=== PATIENT | male | born 1965 | race Caucasian/White ===

== ENCOUNTER 2017-04-21 11:19 | Emergency (ER) | payer OTHER ==
[~2017-04-21] VITALS: Ht 177.8 cm; Wt 102.2 kg
[~2017-04-21 11:19] MED LIST: PRLSR20 PO; RANI300C PO; TERA1CAP PO
[2017-04-21 11:28] VITALS: TEMP 36.6; Ht 177.8 cm; Wt 102.2 kg
[2017-04-21] MEDS ORDERED: OMEP40CA41 PO (11:50)
[2017-04-21] MEDS ORDERED: TAMS0.4C38 PO (11:50)
[2017-04-21] MEDS ORDERED: DICY20TA35 PO (11:50)
[2017-04-21] MEDS ORDERED: FINA5TAB PO (11:50)
[2017-04-21] MEDS ORDERED: CRS/10 PO (11:50)
[2017-04-21] MEDS ORDERED: LORAZEPAM 1 MG TAB SL STA (12:15)
--- NOTE | 2017-04-21 12:24 | EMERGENCY ROOM VISIT NOTE ---
History Report prepared by Lida: Romario Tripp Under the Supervision of: Dr. Chadwick Mcallister M.D. First contact with patient: 12:08 Chief Complaint: CHEST PAIN Stated Complaint: CHEST PAIN Nursing Triage Summary: Prisoner from [place], presents via ALS for CP starting this am at 0730. Per EMS , pt was asked to get a random drug screen taken first thing this morning, pt became anxious, developed CP, EKG performed showed slight ST depression, given 4 baby ASA and 3 Nitro Sprays with no relief. Hx GERD, anxiety, hyperlipidemia, and is a smoker. Pt presents c/o left sided chest pressure, lightheaded/dizzy, and dyspnea at rest. Pt verbalizes "I think this is just anxiety, I get panic attacks and they are like this". History of Present Illness The patient is a 51 year old male who presents to the Emergency Room with complaints of constant left-sided chest pressure beginning this morning. The patient states that he was short of breath after the onset. He denies a history of heart problems, but he does have a history of panic attacks. The patient notes that it feels like he is having a panic attack. He states that all he needs to do is go back to his cell, and his symptoms will go away. The patient reports that he experienced dizziness after receiving nitroglycerin in the ambulance. He notes that he has been having pain in his right leg that radiates to his back, but this has been for the past few weeks. The patient denies lightheadedness. Source of History: patient Onset: this morning Position: chest Quality: pressure Timing: constant Associated Symptoms: + SOB, + back pain Note: Associated symptoms: dizziness and leg pain Denies: lightheadedness. Review of Systems All systems have been listed, reviewed, and are negative other than those previously mentioned. Please see Additional Medical History Sheet. Past Medical & Surgical Medical Problems: (1) Panic attack Family History Patient reports no known family medical history. Social History Smoking Status: Current Every Day Smoker Marital Status: Current/Historical Medications Scheduled Finasteride (Proscar), 5 MG PO DAILY Omeprazole (Prilosec), 40 MG PO DAILY Rosuvastatin Calcium (Crestor), 10 MG PO DAILY Tamsulosin Hcl (Flomax), 0.4 MG PO HS Scheduled PRN Dicyclomine Hcl (Bentyl), 20 MG PO BID PRN for . Allergies Coded Allergies: Iodine (Unverified Allergy, Unknown, UNKNOWN, 04/21/17) Shellfish (Unverified Allergy, Unknown, UNKNOWN, 04/21/17) Physical Exam Vital Signs Date Time Temp Pulse Resp B/P (MAP) Pulse Ox O2 Delivery O2 Flow Rate FiO2 04/21/17 12:27 109 18 148/92 96 Room Air 04/21/17 11:29 108 04/21/17 11:28 36.6 106 18 158/90 98 Room Air 04/21/17 11:28 98 Room Air Physical Exam GENERAL: Patient awake, alert, oriented x 3. Patient follows commands. Patient does not appear toxic. Patient is adequately hydrated and well- nourished. SKIN: No erythema, pallor, cyanosis or rash HEENT: Normal head, pupils equal, reactive to light and accommodation. Oral cavity and posterior pharynx appear normal. Neck: Without adenopathy, no neck vein distention. LUNGS: Clear to auscultation. No wheezes, no rales, no rhonchi. HEART: No murmurs. No gallops. No rubs ABDOMEN: No masses, no rebound, no hepatomegaly or splenomegaly. EXTREMITIES: No signs of trauma. No pedal or pretibial edema. No calf or thigh tenderness. NEUROLOGIC: Cranial nerves II-XII within normal limits. No gross motor sensory function deficits. Medical Decision & Procedures Medications Administered Medications (Trade) Dose Ordered Sig/Carmen Route Start Time Stop Time Status Last Admin Dose Admin Lorazepam (Ativan Tab) 1 mg NOW STAT SL 04/21/17 12:15 04/21/17 12:20 DC 04/21/17 12:15 1 MG ECG Indication: SOB/dyspnea Rate (beats per minute): 102 Rhythm: sinus tachycardia Findings: no acute ischemic change, no ectopy ED Course 1212: Past medical records reviewed. The patient was evaluated in room C07. A complete history and physical examination was performed. I discussed the physical exam findings and the projected treatment plan. The patient denied a work-up other than receiving Lorazepam. I clearly explained the risk of leaving AMA. The patient accepts the risks. 1215: Ordered Lorazepam 1mg SL 1238: I reevaluated the patient and clearly discussed the risks of leaving AMA. The patient still refuses a further work-up. The patient was discharge AMA. Medical Decision I considered multiple diagnoses including myocardial infarction, chest wall pain , pericarditis, myocarditis, aortic emergencies, pulmonary embolism, congestive heart failure, GI causes, and other significant cardiopulmonary disorders. The patient is sure that his pain is gastrointestinal in origin plus anxiety. The patient declines having any blood work or imaging performed. I made it very clear to the patient that he should have these tests done and that the possible consequences could be a missed myocardial infarction or other significant problems including . Most likely the patient does have a gastrointestinal cause along with his anxiety. The patient was given Ativan. The patient was asked to sign out AGAINST MEDICAL ADVICE. Medication Reconcilliation Current Medication List: was personally reviewed by me Blood Pressure Screening Patient's blood pressure: Elevated blood pressure Blood pressure disposition: Elevated BP felt to be situational Impression Primary Impression: GERD (gastroesophageal reflux disease) Additional Impressions: Left against medical advice Anxiety Scribe Attestation The scribe's documentation has been prepared under my direction and personally reviewed by me in its entirety. I confirm that the note above accurately reflects all work, treatment, procedures, and medical decision making performed by me. Departure Information Dispostion Against Medical Advice Referrals Sim Benedict D.O. (PCP) Patient Instructions My [facility] Problem Qualifiers
[2017-04-21 12:27] VITALS: BP 148/92; PULSE 109; O2SAT 96
== END 2017-04-21 12:37 | disposition left against medical advice (07) ==
LOC: EDBD 11:19 → C.EDC 11:20
DX: K21.9 Gastro-esophageal reflux disease without esophagitis (principal); F41.9 Anxiety disorder, unspecified; R00.0 Tachycardia, unspecified; R07.9 Chest pain, unspecified; R06.02 Shortness of breath; Z79.899 Other long term (current) drug therapy; F17.200 Nicotine dependence, unspecified, uncomplicated